=== PATIENT | female | born 1995 | race African-American/Black ===

== ENCOUNTER 2025-03-19 12:11 | Emergency (ER) | payer OTHER, SELFPAY ==
--- NOTE | ~2025-03-19 | XR_ITS ---
X-rays right foot X-rays left foot Indication: Pain Comparison: None Technique: 4 views right foot, 4 views left foot None Findings/Impression: Right foot: 1. No fracture, dislocation, or other acute abnormality. 2. No other acute abnormality identified. Left foot: 1. Nondisplaced fracture first toe, distal phalanx, proximal base, lateral side. 2. No other acute abnormality identified. Reviewed, dictated and finalized at location R.
[2025-03-19 12:16] VITALS: BP 125/68; PULSE 106; RESP 17; TEMP 36.4; O2SAT 100
[2025-03-19 12:43] VITALS: BP 130/75; PULSE 101; RESP 18; TEMP 36.9; O2SAT 100
--- NOTE | 2025-03-19 13:08 | ED_ITS ---
HPI - General Adult General Chief complaint: Extremity Injury, Lower Stated complaint: tombstone fell on both feet, L foot hurts more Time Seen by Provider: 03/19/25 12:34 History of Present Illness HPI narrative: Diego Escobedo is a 29-year-old female who presents today with complaints of having pain to both feet. She states that [place] and [place] fell on both feet more so on the left foot and then the right foot she states that she was unable to get her foot out from the tombstone right away and had to slide it out. Complains of pain to left foot. She states that she did take a test at home and it was positive, LMP was about 4-8 weeks ago. Related Data Allergies Allergy/AdvReac Type Severity Reaction Status Date / Time amoxicillin Allergy Mild Unknown Verified 03/19/25 12:17 Review of Systems Review of Systems: All systems reviewed & are unremarkable except as noted in HPI and below Exam Narrative: GENERAL well-nourished, and in no acute distress. HEAD: Normocephalic, atraumatic. EYES: PERRLA and EOMI. ENT: Nares clear, no rhinorrhea or epistaxis. Mucous membranes moist. Oropharynx without tonsillar hypertrophy exudate or other lesions. NECK: Supple. No adenopathy or masses. No carotid bruits or JVD CHEST: Clear to auscultation. No respiratory distress. No wheezes rales or rhonchi HEART: Regular rate and rhythm. No murmur heard. Normal peripheral pulses. EXTREMITIES: Normal range of motion. Swelling to left foot + ecchymosis to left great toe + pulses neruovascular intact NEURO: No focal deficits. Alert and oriented x3. PSYCH: Normal mood and affect. Course Vital Signs Vital signs: Vital Signs Temperature 36.4 C 03/19/25 12:16 Pulse Rate 106 H 03/19/25 12:16 Respiratory Rate 17 03/19/25 12:16 Blood Pressure 125/68 03/19/25 12:16 Pulse Oximetry 100 03/19/25 12:16 Temperature 36.7 C 03/19/25 14:57 Pulse Rate 102 H 03/19/25 14:57 Respiratory Rate 20 03/19/25 14:57 Blood Pressure 128/76 03/19/25 14:57 Pulse Oximetry 100 03/19/25 14:57 Oxygen Delivery Room Air 03/19/25 12:43 Medical Decision Making MDM Narrative Medical decision making narrative: Normal range of motion. Swelling to left foot + ecchymosis to left great toe + pulses neurovascular intact Concern for fracture versus contusion to the foot X-ray: Nondisplaced fracture of the left great toe, right foot x-ray negative Patient updated on imaging fever stronger pain medication with her negative test placed in postop shoe and provided crutches encouraged rice therapy with Podiatry follow-up return precautions discussed patient agrees with plan denies anything further at this time Medical Records Medical records reviewed: Yes I reviewed the external patient's medical records. Vital Signs Vital Signs: Vital Signs Temperature 36.4 C 03/19/25 12:16 Pulse Rate 106 H 03/19/25 12:16 Respiratory Rate 17 03/19/25 12:16 Blood Pressure 125/68 03/19/25 12:16 Pulse Oximetry 100 03/19/25 12:16 Temperature 36.7 C 03/19/25 14:57 Pulse Rate 102 H 03/19/25 14:57 Respiratory Rate 20 03/19/25 14:57 Blood Pressure 128/76 03/19/25 14:57 Pulse Oximetry 100 03/19/25 14:57 Oxygen Delivery Room Air 03/19/25 12:43 Vitals reviewed by me Lab Data Lab results reviewed: Yes I reviewed the patient's lab results. Labs: Lab Results 03/19/25 Range/Units 13:32 POC Urine HCG, Qual Negative (Negative) Discharge Plan Discharge Clinical Impression: Closed fracture of left great toe Qualifiers: Encounter type: initial encounter Phalanx: distal Fracture alignment: nondisplaced Qualified Code(s): S92.425A - Nondisplaced fracture of distal phalanx of left great toe, initial encounter for closed fracture Patient Disposition: Home Condition: Stable Instructions: Antibiotic Form Additional Instructions: You have a fracture to your left first toe, continue to wear the post op shoe, Elevate/ ICe and rest. Take Tylenol and Motrin for pain Follow up with podiatry as discussed If you should develop any new or worsening sympotms return to the ER. Patient Language: Georgian Prescriptions: New ibuprofen 600 mg tablet 600 mg PO TID PRN (Reason: pain) Qty: 30 0RF Follow-up/Referrals: Shahriar Mcgarry Jr., DPM [Physician, Podiatry] - 1 Week PHYSICIAN,[facility] [Primary Care Provider, Internal Medicine] Stand Alone Forms: Work/School Release IP Time of Disposition: 19:05
[2025-03-19] MEDS: ACETAMINOPHEN 500 MG TABLET 1000 MG PO (13:30)
[2025-03-19 13:35] LABS: BEDSIDEPREGUCG Negative (Negative)
[2025-03-19] MEDS: HYDROcodone/acetaminophen (*CRX) 5-325 MG TABLET 1 TAB PO (14:37)
[2025-03-19] MEDS: IBUPROFEN 600 MG TABLET PO (14:37)
[2025-03-19 14:57] VITALS: BP 128/76; PULSE 102; RESP 20; TEMP 36.7; O2SAT 100
== END 2025-03-19 15:02 | disposition home or self-care (01) ==
PROVIDERS: Emergency Provider Nurse Practitioner Family
DX: S92.425A Nondisplaced fracture of distal phalanx of left great toe, initial encounter for closed fracture (principal); W20.8XXA Other cause of strike by thrown, projected or falling object, initial encounter
CPT/HCPCS: 73630; 81025; 99284; A9270